=== PATIENT | male | born 1980 | race Caucasian/White ===

== ENCOUNTER 2019-03-30 14:18 | Emergency (ER) | payer BC ==
[~2019-03-30] VITALS: Ht 182.9 cm; Wt 106.8 kg
[2019-03-30 14:49] LABS: BASO % 0.3 % (0.0-1.0); EOS # 0.1 10^3/uL (0.0-0.50); EOS % 1.2 % (0.0-3.0); HEMATOCRIT 41.1 % (42.0-52.0); HEMOGLOBIN 14.3 g/dl (13.5-17.5); LYMPH # 1.2 10^3/uL (1.5-4.5); LYMPH % 11.3 % (24.0-44.0); MEAN CORPUSCULAR HEMOGLOBIN 31.8 pg (27.0-33.0); MEAN CORPUSCULAR HGB CONC 34.8 g/dl (32.0-36.5); MEAN CORPUSCULAR VOLUME 91.3 fl (80.0-96.0); MONO # 0.5 10^3/uL (0.0-0.8); MONO % 4.2 % (0.0-5.0); NEUTROPHILS # 8.9 10^3/uL (1.8-7.7); NEUTROPHILS % 82.5 % (36.0-66.0); PLATELET COUNT, AUTOMATED 269 10^3/uL (150-450); WHITE BLOOD COUNT 10.8 10^3/uL (4.0-10.0)
[2019-03-30] MEDS ORDERED: GI COCKTAIL 50ML BTL(HYOSCYAMINE/MAALOX/LIDOCAINE VISCOUS)(1:3:1) PO ONE (15:15)
[2019-03-30 15:21] LABS: ALBUMIN 4.2 GM/DL (3.2-5.2); BILIRUBIN,DIRECT 0.2 MG/DL (0.0-0.2); BILIRUBIN,TOTAL 0.7 MG/DL (0.2-1.0); TOTAL PROTEIN 7.4 GM/DL (6.4-8.2)
--- NOTE | 2019-03-30 15:48 | ECGEPIP ---
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
[2019-03-30] MEDS: GASTROGRAFIN SOLUTION 30ML PO SCH ×2 (16:06→16:32)
[2019-03-30] MEDS ORDERED: ISOVUE-370 76% 100ML VIAL (Q9967) As Ordered ONE (16:08)
--- NOTE | 2019-03-30 16:19 | REP ---
Clinical: Right upper quadrant pain. Technique: Real time dooley scale ultrasound examination using curved array transducer. Findings: Liver demonstrates coarsened echotexture which may reflect hepatocellular disease without focal hepatic lesion identified. The pancreas is incompletely evaluated due to interposed bowel gas but visualized portions appear normal. The patient is noted to be prior cholecystectomy. The common bile duct is upper limits of normal at 7 mm diameter. The right kidney is normal in reniform shape without hydronephrosis and measures 11.2 x 6.7 x 5.7 cm. No ascites in the visualized right upper quadrant. Impression: Cannot exclude hepatocellular disease without obvious focal hepatic lesion. Electronically Signed by Saurav Burns MD 03/30/2019 04:09 P
--- NOTE | 2019-03-30 18:13 | REPVR ---
EXAM: CT Abdomen and Pelvis With Contrast EXAM DATE/TIME: 03/30/2019 5:29 PM CLINICAL HISTORY: 39 years old, male; Abdominal pain; Epigastric; Additional info: Epigastric pain; R/O perforated ulcer; HX of bypass TECHNIQUE: Imaging protocol: Axial computed tomography images of the abdomen and pelvis with intravenous contrast. Coronal and sagittal reformatted images were created and reviewed. Radiation optimization: All CT scans at this facility use at least one of these dose optimization techniques: automated exposure control; mA and/or kV adjustment per patient size (includes targeted exams where dose is matched to clinical indication); or iterative reconstruction. Contrast material: ISOVUE 370; Contrast volume: 100 ml; Contrast route: IV; COMPARISON: LIVER US 03/30/2019 4:01 PM FINDINGS: Liver: There is a diffuse decrease in hepatic parenchymal density, consistent with fatty infiltration. Gallbladder and bile ducts: There has been a cholecystectomy. Pancreas: Normal. No ductal dilation. Spleen: There is mild splenomegaly with a maximum span of 13 centimeters. No focal abnormalities demonstrated. Adrenals: Normal. No mass. Kidneys and ureters: Normal. No hydronephrosis. Stomach and bowel: This patient is status post gastric bypass surgery. Status post right hemicolectomy. Appendix: No evidence of appendicitis. Intraperitoneal space: Normal. No free air. No significant fluid collection. Vasculature: Normal. No abdominal aortic aneurysm. Lymph nodes: Normal. No enlarged lymph nodes. Bladder: Unremarkable as visualized. Reproductive: Unremarkable as visualized. Bones/joints: No acute fracture. No dislocation. Soft tissues: Unremarkable. IMPRESSION: 1. There is a diffuse decrease in hepatic parenchymal density, consistent with fatty infiltration. 2. There has been a cholecystectomy. 3. There is mild splenomegaly with a maximum span of 13 centimeters. No focal abnormalities demonstrated. 4. This patient is status post gastric bypass surgery. 5. No acute findings. Electronically signed by: Yasmany Bahena On 03/30/2019 18:13:40 PM
[2019-03-30 18:15] VITALS: BP 134/83
[2019-03-30] MEDS ORDERED: CARA1TAB6 PO (18:28)
[2019-03-30] MEDS ORDERED: OMEP40CA2 PO (18:28)
[2019-03-30] MEDS ORDERED: SUCRALFATE 1 GM TAB PO ONE (18:30)
[2019-03-30] MEDS ORDERED: OMEPRAZOLE 20 MG CAP PO ONE (18:30)
[2019-03-31 11:14] LABS: HEPATITIS A ANTIBODY IGM NEGATIVE (NEGATIVE); HEPATITIS B CORE ANTIBODY IGM NEGATIVE (NEGATIVE); HEPATITIS B SURFACE ANTIGEN NEGATIVE (NEGATIVE); HEPATITIS C VIRUS ABY INDEX 0.1 INDEX (<0.8)
--- NOTE | 2019-03-31 13:01 | ED PDOC ---
Post-Departure Follow-Up nimo pedro faxed formal report of liver us for fu Shira Myers MD Mar 31, 2019 13:01
== END 2019-03-30 18:38 | disposition home or self-care (01) ==
LOC: M ED 16:01
DX: K76.0 Fatty (change of) liver, not elsewhere classified (principal); K27.9 Peptic ulcer, site unspecified, unspecified as acute or chronic, without hemorrhage or perforation; R94.5 Abnormal results of liver function studies; R00.1 Bradycardia, unspecified; Z98.84 Bariatric surgery status
CPT/HCPCS: 74177; 76705; 80047; 80076; 81001; 83690; 85025; 86705; 86709; 86803; 87340; 93005; 99284; Q9963; Q9967

== ENCOUNTER 2024-06-21 19:14 | Emergency (ER) | payer BC ==
[~2024-06-21] VITALS: Ht 182.9 cm; Wt 108.5 kg
[~2024-06-21 19:14] MED LIST: CARA1TAB6 PO; OMEP40CA4 PO
[2024-06-21 19:19] VITALS: BP 143/80; TEMP 98.8; O2SAT 98
[2024-06-21] MEDS ORDERED: LIDOCAINE 2% MDV 20ML VIAL As Ordered ONE (20:46)
[2024-06-21] MEDS: LIDOCAINE 2% MDV 20ML VIAL SC ONE (20:50)
[2024-06-21] MEDS: BOOSTRIX VACCINE (TETANUS/DIPHTH/ACEL. PERTUSSIS) 0.5ML SYR IM.IMMUN ONE (21:43)
[2024-06-21] MEDS: NEOSPORIN OINT 0.9 GM PKT TOP ONE (21:45)
== END 2024-06-21 22:02 | disposition home or self-care (01) ==
LOC: M ED 19:14
DX: S61.412A Laceration without foreign body of left hand, initial encounter (principal); W26.8XXA Contact with other sharp object(s), not elsewhere classified, initial encounter; K21.9 Gastro-esophageal reflux disease without esophagitis; Z23 Encounter for immunization; Z79.899 Other long term (current) drug therapy; Y92.009 Unspecified place in unspecified non-institutional (private) residence as the place of occurrence of the external cause; Y93.89 Activity, other specified; Y99.9 Unspecified external cause status